=== PATIENT | male | born 1990 | race Caucasian/White ===

== ENCOUNTER 2022-05-20 08:20 | Emergency (ER) | payer BC ==
[2022-05-20] MEDS ORDERED: Prochlorperazine 10 MG in Sodium Chloride 0.9% 50 ML IV ONE (09:42)
[2022-05-20] MEDS ORDERED: Acetaminophen 325 MG Tab PO ONE (09:43)
[2022-05-20] MEDS ORDERED: diphenhydrAMINE 50 MG/ML SDV IVPUSH ONE (09:43)
[2022-05-20] MEDS ORDERED: Ketorolac 30 MG/ML SDV IVPUSH ONE (09:43)
[2022-05-20] MEDS ORDERED: Sodium Chloride 0.9% 1,000 ML IV SCH (09:45)
[2022-05-20] MEDS ORDERED: Prochlorperazine 10 MG/2 ML SDV IVPUSH ONE (10:00)
[2022-05-20 10:12] LABS: CARBON DIOXIDE,CO2 26.6 mmol/L (21.0-32.0); POTASSIUM,K 4.1 mmol/L (3.5-5.1)
[2022-05-20 10:57] LABS: CORONAVIRUS COVID-19 NAA NEGATIVE (NEGATIVE); INFLUENZA A NAA NEGATIVE (NEGATIVE); INFLUENZA B NAA NEGATIVE (NEGATIVE); RESPIRATORY SYNCYTIAL VIR NAA NEGATIVE (NEGATIVE)
[2022-05-20] MEDS ORDERED: Gadobenate Dimeglumine 529 MG/ML 20 ML SDV IVPUSH STA (13:07)
== END 2022-05-20 15:11 | disposition home or self-care (01) ==
LOC: MW.ED 08:20
DX: R51.9 Headache, unspecified (principal); R53.83 Other fatigue; R63.0 Anorexia; Z20.822 Contact with and (suspected) exposure to COVID-19
CPT/HCPCS: 0241U; 36415; 70450; 70496; 70498; 70553; 80053; 85025; 87040; 93005; 96361; 96374; 96375; 99284; A9270; A9577; J0780; J1200; J1885; J7030

== ENCOUNTER 2023-03-24 08:01 | Emergency (ER) | payer BC ==
[2023-03-24 08:56] LABS: BASOPHILS ABSOLUTE AUTO 0.03 K/uL (0.00-0.20); BASOPHILS PERCENT AUTO 0.4 % (0.0-1.0); EOSINOPHILS ABSOLUTE AUTO 0.14 K/uL (0.00-0.45); EOSINOPHILS PERCENT AUTO 1.8 % (0.0-6.0); HEMATOCRIT 43.9 % (42.0-52.0); HEMOGLOBIN 15.4 g/dL (14.0-18.0); IMMATURE GRAN ABSOLUTE AUTO 0.02 K/uL (0.00-0.05); IMMATURE GRAN PERCENT AUTO 0.3 % (0.0-0.4); LYMPHOCYTES ABSOLUTE AUTO 2.18 K/uL (1.00-4.80); LYMPHOCYTES PERCENT AUTO 28.3 % (24.0-44.0); MEAN CORPUSCULAR HEMOGLOBIN 30.1 pg (28.0-32.0); MEAN CORPUSCULAR HGB CONC 35.1 g/dL (32.0-36.0); MEAN CORPUSCULAR VOLUME 85.9 fL (83.0-99.0); MEAN PLATELET VOLUME 10.8 fL (9.4-12.4); MONOCYTES ABSOLUTE AUTO 0.49 K/uL (0.00-0.80); MONOCYTES PERCENT AUTO 6.4 % (0.0-8.0); NEUTROPHILS ABSOLUTE AUTO 4.83 K/uL (1.80-7.70); NEUTROPHILS PERCENT AUTO 62.8 % (41.0-71.0); PLATELET COUNT,PLT 203 K/uL (150-400); RED BLOOD CELL COUNT 5.11 M/uL (4.52-5.90); WHITE BLOOD CELL COUNT,WBC 7.69 K/uL (3.9-11.3)
[2023-03-24 09:25] LABS: ALBUMIN 3.8 g/dL (3.4-5.0); BILIRUBIN TOTAL 0.2 mg/dL (0.2-1.0); CALCIUM 8.6 mg/dL (8.5-10.1); CARBON DIOXIDE,CO2 27.9 mmol/L (21.0-32.0); CREATININE 0.9 mg/dL (0.8-1.3); EST CRCL DRUG DOSING (CG) 126.94 mL/min; POTASSIUM,K 3.7 mmol/L (3.5-5.1); PROTEIN TOTAL,TP 7.5 g/dL (6.4-8.2)
[2023-03-24 10:41] LABS: CORONAVIRUS COVID-19 NAA NEGATIVE (NEGATIVE); INFLUENZA A NAA NEGATIVE (NEGATIVE); INFLUENZA B NAA NEGATIVE (NEGATIVE); RESPIRATORY SYNCYTIAL VIR NAA NEGATIVE (NEGATIVE)
[2023-03-24 12:09] LABS: C-REACTIVE PROTEIN 0.22 mg/dL (<0.3)
== END 2023-03-24 12:13 | disposition home or self-care (01) ==
LOC: MW.ED 08:01
DX: R07.9 Chest pain, unspecified (principal); Z20.822 Contact with and (suspected) exposure to COVID-19; K21.9 Gastro-esophageal reflux disease without esophagitis
CPT/HCPCS: 0241U; 36415; 71045; 80053; 83880; 84484; 85025; 85610; 85652; 86140; 93005; 99285